=== PATIENT | female | born 1975 | race African-American/Black ===

== ENCOUNTER 2016-12-06 09:55 | Emergency (ER) | payer OTHER ==
[~2016-12-06] VITALS: Ht 154.9 cm; Wt 60.0 kg
[~2016-12-06 09:55] MED LIST: DICL75 PO; ROBA750T3 PO; ZOFR4TAB3 PO
[2016-12-06 09:56] VITALS: BP 135/77; PULSE 56; RESP 20; TEMP 99.1; O2SAT 100
[2016-12-06] MEDS ORDERED: IBUP800T23 PO (10:20)
[2016-12-06] MEDS ORDERED: CYCL1TAB29 PO (10:20)
--- NOTE | 2016-12-06 10:21 | PD ---
HPI Chief Complaint: Back/ Neck Pain or Injury Time Seen by Provider: 10:19 Travel History International Travel<30 days: No Contact w/Intl Traveler<30days: No Traveled to known affect area: No History of Present Illness HPI 41-year-old female presents to the emergency Department with complaint of right lower back pain that radiates down her right leg 30 minutes after bending over while cleaning at work. Denies history of back pain. Denies paresthesias, loss of sensation, decreased range of motion, decreased strength to bilateral lower extremity is. Denies IV drug use, cancer. Denies fever, vomiting, abdominal pain. Denies encopresis, incontinence, saddle anesthesias. Has not taken any medications or tried any treatments to alleviate her symptoms. Pain is worse with ambulation and bearing weight to the right lower extremity; worse with movement and standing up straight. Has no other medical complaints. No known allergies. No other modifying factors or associated signs and symptoms. PFSH Past Medical History Arthritis: No Cancer: No Cardiovascular Problems: Yes Cerebrovascular Accident: No Diabetes: No Diminished Hearing: No Endocrine: Yes Genitourinary: No Headaches: No Hypertension: Yes Immune Disorder: No Musculoskeletal: No Neurologic: Yes (MIGRAINES) Psychiatric: No Reproductive: No Respiratory: No Migraines: Yes Seizures: No Thyroid Disease: Yes (PT STATES SHE WAS SUPPOSED TO HAVE HER THYROID REMOVED BUT UNSURE WHY.) Tetanus Vaccination: Unknown Influenza Vaccination: No ?: Not LMP: 12/06/16 : 4 Para: 4 Tubal Ligation: Yes Past Surgical History Abdominal Surgery: No Cardiac Surgery: No Section: Yes (X2) Ear Surgery: No Endocrine Surgery: No Eye Surgery: No Genitourinary Surgery: No Gynecologic Surgery: Yes (2 C-SECTIONS 1988 AND 1995-[facility] 2011) Hysterectomy: Yes (PARTIAL, RIGHT OVARY REMOVED) Oral Surgery: No Pacemaker: No Thoracic Surgery: No Social History Alcohol Use: No Tobacco Use: No Substance Use: No Allergies-Medications (Allergen,Severity, Reaction): Coded Allergies: No Known Allergies (Verified , 12/09/13) Reported Meds & Prescriptions Reported Meds & Active Scripts Active Ibuprofen 800 Mg Tab 800 Mg PO Q6HR PRN Flexeril (Cyclobenzaprine HCl) 10 Mg Tab 10 Mg PO TID PRN Review of Systems Except as stated in HPI: all other systems reviewed are Neg Physical Exam Narrative GENERAL: Well-nourished, well-developed female patient, in no acute distress; afebrile, nontoxic-appearing SKIN: Warm and dry. HEAD: Atraumatic. Normocephalic. EYES: Pupils equal and round. No scleral icterus. No injection or drainage. ENT: Mucosa pink and moist. Airway patent. NECK: Trachea midline. CARDIOVASCULAR: Regular rate. RESPIRATORY: No accessory muscle use. GASTROINTESTINAL: Rounded. MUSCULOSKELETAL: Bilateral lower extremities supple and non-tense with 2+ pedal pulses and sensory intact; with full range of motion and 5/5 strength. 2 + DTRs bilaterally. Active dorsiflexion and extension of bilateral feet. Right straight leg raise is right for low back pain. Ambulatory in room with a limp. Right lower extremity. Sitting up in bed at 90. No obvious deformities. No clubbing. No cyanosis. No edema. BACK: No midline point tenderness on palpation of the lumbar spine. Tenderness on palpation of right lumbar paraspinal and iliosacral area. No obvious deformities. NEUROLOGICAL: Awake and alert. Oriented 3. No obvious cranial nerve deficits. Motor grossly within normal limits. Normal speech. Moves all extremities. 5/5 strength to all extremities. Sensory intact. PSYCHIATRIC: Appropriate mood and affect; insight and judgment normal. Data Data Last Documented VS Vital Signs Date Time Temp Pulse Resp B/P Pulse Ox O2 Delivery O2 Flow Rate FiO2 12/06/16 09:56 99.1 56 20 135/77 100 Room Air Orders Ketorolac Inj (Toradol Inj) (12/06/16 10:30) Orphenadrine Inj (Norflex Inj) (12/06/16 10:30) MDM Medical Decision Making Medical Screen Exam Complete: Yes Emergency Medical Condition: Yes Medical Record Reviewed: Yes Differential Diagnosis Low back strain, acute low back pain, sciatica Narrative Course 41-year-old female with low back strain with right-sided low back pain with sciatica. She bent over at work and back pain started. Denies injury. Denies encopresis, incontinence, saddle anesthesias. Denies IV drug use, cancer. Patient is ambulatory in the room with a limp to the right lower extremity. No midline point tenderness on palpation of the lumbar spine. Toradol and Norflex administered in the ER. Flexeril and ibuprofen prescribed for home. Patient verbalizes understanding and agreement with treatment plan. Patient is medically cleared and stable for discharge. Discussed reasons to return to the emergency department. Instructed patient to follow up with primary care provider. Patient agrees with treatment plan. The patients vital signs are stable and the patient is stable for outpatient follow-up and treatment. Patient discharged home, stable and in no acute distress. Diagnosis Primary Impression: Right-sided low back pain with sciatica Qualified Code: M54.41 - Right-sided low back pain with right-sided sciatica, unspecified chronicity Additional Impression: Low back strain Qualified Code: S39.012A - Low back strain, initial encounter Referrals: Primary Care Physician Patient Instructions: Acute Low Back Pain (ED), General Instructions, Low Back Strain (ED), Lower Back Exercises (ED), Sciatica (ED) Departure Forms: Tests/Procedures, Work Release Enter return to work date: Dec 10, 2016 Additional Instructions: Tylenol or ibuprofen as directed and as needed to reduce pain Flexeril as prescribed for muscle spasms Get adequate rest Ice and/or heating pad to affected area to reduce pain Avoid aggravating activity; increase activity as tolerated Follow-up with primary care provider Return to the emergency department immediately with worsening symptoms Med/Other Pt SpecificInfo: Prescription(s) given Scripts Ibuprofen 800 Mg [id number] Mg PO Q6HR PRN (PAIN) #30 TAB Ref 0 Prov:Angelia You 12/06/16 Cyclobenzaprine (Flexeril)10 Mg Tab10 Mg PO TID PRN (MUSCLE SPASM) #30 TAB Ref 0 Prov:Angelia You 12/06/16 Disposition: 01 DISCHARGE HOME Condition: Stable Angelia You December 06, 2016 10:21
[2016-12-06] MEDS ORDERED: ORPHENADRINE INJ 60 MG/2 ML AMP IM ONE (10:30)
[2016-12-06] MEDS ORDERED: KETOROLAC TROMETHAMINE 60 MG/2 ML (IM) VIAL IM ONE (10:30)
== END 2016-12-06 10:46 | disposition home or self-care (01) ==
LOC: NEPK 09:55
DX: M54.41 Lumbago with sciatica, right side (principal); S39.012A Strain of muscle, fascia and tendon of lower back, initial encounter; X50.9XXA Other and unspecified overexertion or strenuous movements or postures, initial encounter; Y93.89 Activity, other specified; Y99.0 Civilian activity done for income or pay
CPT/HCPCS: 96372; 99284; J1885; J2360